=== PATIENT | female | born 1955 | race Caucasian/White ===

== ENCOUNTER 2022-05-27 18:06 | Emergency (ER) | payer OTHER ==
[2022-05-27 18:35] VITALS: BP 151/97; PULSE 83; RESP 16; TEMP 97.9; BMI 30.7
== END 2022-05-27 18:53 | disposition home or self-care (01) ==
LOC: FER 18:06
PROC: 0HQMXZZ Repair Right Foot Skin, External Approach (ICD-10-PCS; principal; 2022-05-27)
DX: S91.114A Laceration without foreign body of right lesser toe(s) without damage to nail, initial encounter (principal); W26.8XXA Contact with other sharp object(s), not elsewhere classified, initial encounter
CPT/HCPCS: 99282-25

== ENCOUNTER 2022-06-09 14:20 | Emergency (ER) | payer OTHER ==
[2022-06-09 14:24] VITALS: BP 138/83; PULSE 83; RESP 16; TEMP 98.3; BMI 30.7
== END 2022-06-09 15:12 | disposition home or self-care (01) ==
LOC: FER 14:20
DX: Z48.02 Encounter for removal of sutures (principal)
CPT/HCPCS: 99281-25

== ENCOUNTER 2024-07-24 16:07 | Inpatient (IN) | payer BC, OTHER ==
[2024-07-24] MEDS ORDERED: LIDOCAINE 5% TOPICAL PATCH ONE (17:08)
[2024-07-24] MEDS: LIDOCAINE 5% TOPICAL PATCH TP ONE (17:10)
[2024-07-24 17:30] LABS: HEMATOCRIT 41.2 % (32.4-45.2); HEMOGLOBIN 14.2 G/dL (10.7-15.3); MCH 32.2 pg (25.7-33.7); MCHC 34.4 g/dl (32.0-36.0); MEAN CELL VOLUME 93.5 fl (80-96); MEAN PLT VOLUME 9.5 fl (7.5-11.1); PLATELET COUNT 154.6 10^3/uL (134-434); RBC 4.41 10^6/uL (3.60-5.2); RDW 13.1 % (11.6-15.6); WHITE BLOOD COUNT 12.9 10^3/uL (4.0-10.8)
[2024-07-24] MEDS ORDERED: KETOROLAC TROMETHAMINE 15 MG/ML VIAL ONE (17:39)
[2024-07-24] MEDS: KETOROLAC TROMETHAMINE 15 MG/ML VIAL IVPUSH ONE (17:45)
[2024-07-24 17:48] LABS: ALBUMIN 4.2 g/dl (3.4-5.0); BILIRUBIN,TOTAL 0.7 mg/dl (0.2-1); CALCIUM 9.6 mg/dl (8.5-10.1); CREATININE 0.7 mg/dl (0.6-1.3); MAGNESIUM 1.9 mg/dL (1.8-2.4); POTASSIUM 4.5 mmol/L (3.5-5.1); TOT PROT 6.5 g/dl (6.4-8.2)
[2024-07-24] MEDS: SODIUM CHLORIDE 1,000 ML IV STA (18:00)
[2024-07-24] MEDS: ACETAMINOPHEN 1000 MG/100 ML BAG IVPB ONE (18:30)
[2024-07-24] MEDS ORDERED: ACETAMINOPHEN INJECTION 100 ML ONE (18:34)
[2024-07-24] MEDS ORDERED: PIPERACILLIN/TAZOBACTAM 3.375 GM VIAL IVPB ONE (18:35)
[2024-07-24] MEDS ORDERED: VANCOMYCIN 1,000 MG VIAL (RESTRICTED TO ID ONLY) ONE (18:35)
[2024-07-24] MEDS: PIPERACILLIN/TAZOB 3.375 GM 3.375 GM in DEXTROSE 5%-WATER - 50 ML IVPB ONE (18:45)
[2024-07-24] MEDS: SODIUM CHLORIDE 1,500 ML IV STA (18:48)
[2024-07-24] MEDS: VANCOMYCIN 1,000 MG in DEXTROSE 5%-WATER - 250 ML IVPB ONE (18:52)
[2024-07-24 19:25] LABS: EPITHELIAL CELLS 0-5 /hpf
[2024-07-24 19:26] LABS: PLATELET ESTIMATE ADEQUATE
[2024-07-24] MEDS ORDERED: DOCUSATE SODIUM 100 MG CAPSULE (FP) PO PRN (21:25)
[2024-07-24] MEDS: DULoxetine HCL 20 MG CAPSULE.DR PO SCH (23:57)
[2024-07-24] MEDS: MONTELUKAST NA 10 MG TABLET PO SCH (23:57)
[2024-07-24] MEDS: ROSUVASTATIN CA 10 MG TABLET PO SCH (23:58)
[2024-07-25] MEDS: FLUTICASONE/SALMETEROL (WIXELA) 100 MCG/50 MCG DISKUS IH SCH (00:14)
[2024-07-25] MEDS: LACTATED RINGERS SOLUTION 1,000 ML/1,000 ML INFUS.BAG IV STA (00:40)
[2024-07-25] MEDS: PIPERACILLIN/TAZOB 3.375 GM 3.375 GM in DEXTROSE 5%-WATER - 50 ML IVPB SCH ×2 (02:47→12:26)
[2024-07-25] MEDS: KETOROLAC TROMETHAMINE 15 MG/ML VIAL IVPUSH PRN (05:12)
[2024-07-25] MEDS: LIDOCAINE PATCH REMOVAL MC SCH (05:13)
[2024-07-25] MEDS: VANCOMYCIN/WATER FOR INJ (PEG) 1,000 MG/200 ML BAG IVPB SCH (08:04)
[2024-07-25 08:49] LABS: HEMATOCRIT 34.2 % (32.4-45.2); HEMOGLOBIN 11.7 G/dL (10.7-15.3); MCH 31.9 pg (25.7-33.7); MCHC 34.1 g/dl (32.0-36.0); MEAN CELL VOLUME 93.5 fl (80-96); MEAN PLT VOLUME 10.5 fl (7.5-11.1); RBC 3.66 10^6/uL (3.60-5.2); WHITE BLOOD COUNT 8.3 10^3/uL (4.0-10.8)
[2024-07-25 08:53] LABS: CALCIUM 8.1 mg/dl (8.5-10.1); CREATININE 0.6 mg/dl (0.6-1.3); POTASSIUM 3.8 mmol/L (3.5-5.1)
[2024-07-25] MEDS ORDERED: HEPARIN NA (PORCINE) 5,000 UNITS/ML 1ML VIAL IVPUSH PRN (09:56)
[2024-07-25] MEDS: HEPARIN NA (PORCINE) 5,000 UNITS/ML 1ML VIAL IVPUSH PRN (10:32)
[2024-07-25] MEDS: PANTOPRAZOLE SODIUM 40 MG VIAL IVPUSH SCH (10:34)
[2024-07-25] MEDS: HEPARIN - 25,000 UNIT in SODIUM CHLORIDE 495 ML IV SCH (10:41)
[2024-07-25 10:46] LABS: INR 1.44 (0.83-1.09); PROTHROMBIN TIME (PATIENT) 16.2 SEC (9.7-13.0)
[2024-07-25 10:48] LABS: ACTIVATED PTT 40.7 SECONDS (25.2-36.5)
[2024-07-25 11:08] LABS: ARTERIAL BLD GAS O2 SATURATION 95.1 % (95-98); ARTERIAL BLOOD GAS BASE EXCESS -5.1 mmol/L (-2-2); ARTERIAL BLOOD GAS PO2 73.8 mmHg (80-100); ARTERIAL BLOOD GAS pH 7.403 (7.350-7.450)
[2024-07-25 11:10] LABS: VENT RATE NPN
[2024-07-25] MEDS: ACETAMINOPHEN 1000 MG/100 ML BAG IVPB PRN (12:05)
[2024-07-25] MEDS ORDERED: ACETAMINOPHEN 1000 MG/100 ML BAG IVPB PRN (12:17)
[2024-07-25] MEDS: VANCOMYCIN 1,000 MG in DEXTROSE 5%-WATER - 250 ML IVPB SCH (12:26)
[2024-07-25] MEDS: SODIUM CHLORIDE 0.9% 250 ML INFUS.BAG IV ONE (14:19)
[2024-07-25] MEDS: SODIUM CHLORIDE 1,000 ML IV SCH (14:19)
[2024-07-25] MEDS: LACTATED RINGERS SOLUTION 1,000 ML/1,000 ML INFUS.BAG IV SCH (16:56)
[2024-07-25] MEDS: PIPERACILLIN/TAZOB 3.375 GM 50 ML IVPB SCH (21:15)
[2024-07-25] MEDS: LIDOCAINE 5% TOPICAL PATCH TP SCH (23:13)
[2024-07-26] MEDS: LIDOCAINE PATCH REMOVAL MC SCH (00:11)
[2024-07-26 07:32] LABS: CHOLESTEROL 128 mg/dL (50-200)
[2024-07-26 07:33] LABS: LDL CHOLESTEROL (ONLY SJRH) 37 mg/dL (5-100)
[2024-07-26 07:35] LABS: HDL CHOLESTEROL 46 mg/dL (40-60)
[2024-07-26] MEDS: ACETAMINOPHEN 1000 MG/100 ML BAG IVPB PRN (13:26)
[2024-07-26] MEDS: FUROSEMIDE 40 MG/4 ML INJECTABLE VIAL IVPUSH ONE ×2 (13:26→14:16)
[2024-07-26] MEDS: VANCOMYCIN/WATER FOR INJ (PEG) 1,000 MG/200 ML BAG IVPB ONE (23:31)
[2024-07-27 08:05] LABS: BASO % 0.2 % (0-2.0); EOS % 0.2 % (0-4.5); HEMATOCRIT 35.5 % (32.4-45.2); HEMOGLOBIN 11.9 GM/dL (10.7-15.3); LYMPH % 10.7 % (8-40); MCH 30.6 pg (25.7-33.7); MCHC 33.6 g/dl (32.0-36.0); MEAN CELL VOLUME 91.2 fl (80-96); MEAN PLT VOLUME 10.5 fl (7.5-11.1); MONO % 5.9 % (3.8-10.2); PLATELET COUNT 91 10^3/uL (134-434); RBC 3.89 M/mm3 (3.60-5.2); RDW 12.9 % (11.6-15.6); WHITE BLOOD COUNT 11.9 K/mm3 (4.0-10.0)
[2024-07-27 08:37] LABS: ALBUMIN 2.6 g/dl (3.4-5.0); ALK PHOS 68 U/L (45-117); ANION GAP 7 mmol/L (4-13); BILIRUBIN,TOTAL 0.5 mg/dL (0.2-1); BLOOD UREA NITROGEN 10.3 mg/dL (7-18); CALCIUM 8.5 mg/dL (8.5-10.1); CHLORIDE 106 mmol/L (98-107); CO2 26 mmol/L (21-32); CREATININE 0.5 mg/dL (0.55-1.3); GLUCOSE,RANDOM 91 mg/dL (74-106); POTASSIUM 2.9 mmol/L (3.5-5.1); SGOT/AST 40 U/L (15-37); SGPT/ALT 63 U/L (13-61); SODIUM 138 mmol/L (136-145); TOT PROT 5.3 g/dl (6.4-8.2)
[2024-07-27] MEDS ORDERED: DOCUSATE SODIUM 100 MG CAPSULE (FP) PO PRN (09:24)
[2024-07-27] MEDS: HEPARIN NA (PORCINE) 5,000 UNITS/ML 1ML VIAL SQ SCH (10:31)
[2024-07-27] MEDS: SODIUM CHLORIDE 1,000 ML IV SCH (12:07)
[2024-07-27] MEDS: KCL 10 MEQ IVPB 10 MEQ/100 ML INFUS.BAG IVPB SCH ×2 (12:32→17:52)
[2024-07-27] MEDS: POTASSIUM CHLORIDE ORAL LIQUID 20 MEQ/15 ML PO ONE (16:03)
[2024-07-27 16:17] VITALS: BMI 30.6
[2024-07-27] MEDS ORDERED: VANCOMYCIN 1,000 MG VIAL (RESTRICTED TO ID ONLY) ONE (16:30)
[2024-07-27] MEDS ORDERED: THROMBIN (BOVINE) 20,000 UNIT VIAL TP ONE (16:30)
[2024-07-27] MEDS ORDERED: BUPIVACAINE HCL/PF 0.5% (5MG/ML) 10 ML VIAL ONE (16:30)
[2024-07-27] MEDS ORDERED: GENTAMICIN SO4 80 MG/2 ML VIAL ONE ×2 (16:30→21:55)
[2024-07-27] MEDS ORDERED: BUPIVACAINE LIPOSOME/PF (EXPAREL) 266 MG/20 ML VIAL ONE (16:31)
[2024-07-27] MEDS ORDERED: LIDOCAINE 1%/EPI 1:100000 (20 ML MULTI DOSE VIAL) ONE (16:31)
[2024-07-27 19:43] LABS: CHLORIDE 105 mmol/L (98-107); SODIUM 138 mmol/L (136-145)
[2024-07-27 19:45] LABS: BLOOD UREA NITROGEN 8.9 mg/dL (7-18); CALCIUM 8.3 mg/dL (8.5-10.1); CO2 25 mmol/L (21-32); GLUCOSE,RANDOM 99 mg/dL (74-106)
[2024-07-27 19:49] LABS: CREATININE 0.4 mg/dL (0.55-1.3)
[2024-07-27 19:58] LABS: ANION GAP 9 mmol/L (4-13); POTASSIUM 2.9 mmol/L (3.5-5.1)
[2024-07-27] MEDS ORDERED: MIDAZOLAM HCL 2 MG/2 ML SINGLE DOSE VIAL ONE (20:50)
[2024-07-27] MEDS: LIDOCAINE 1%/EPI 1:100000 (20 ML MULTI DOSE VIAL) IJ ONE (21:15)
[2024-07-27] MEDS: HYDROGEN PEROXIDE 473 ML PO ONE (21:30)
[2024-07-27] MEDS: GENTAMICIN SO4 80 MG/2 ML VIAL IVPB ONE ×2 (21:30→22:00)
[2024-07-27] MEDS: MONTELUKAST NA 10 MG TABLET PO SCH (22:00)
[2024-07-27] MEDS: VANCOMYCIN 1 GM in D5W (PRE-DOCKED) 1,000 MG/250 ML (RESTRICTED TO ID ONLY IVPB ONE (22:00)
[2024-07-27] MEDS: DULoxetine HCL 20 MG CAPSULE.DR PO SCH (22:00)
[2024-07-27] MEDS: ROSUVASTATIN CA 10 MG TABLET PO SCH (22:00)
[2024-07-27] MEDS: FLUTICASONE/SALMETEROL (WIXELA) 100 MCG/50 MCG DISKUS IH SCH (22:00)
[2024-07-27] MEDS ORDERED: NEOSTIGMINE METHYLSULFATE 0.5 MG/1 ML - 10 ML MDV ONE (22:06)
[2024-07-27] MEDS: BUPIVACAINE LIPOSOME/PF (EXPAREL) 266 MG/20 ML VIAL NR ONE (22:14)
[2024-07-27] MEDS: BUPIVACAINE HCL/PF 0.5% (5 MG/ML) 30 ML VIAL IJ ONE (22:14)
[2024-07-27] MEDS ORDERED: ONDANSETRON 4 MG/2 ML VIAL IVPUSH PRN ×2 (22:52→23:04)
[2024-07-27] MEDS: ACETAMINOPHEN 1000 MG/100 ML BAG IVPB ONE (23:10)
[2024-07-27] MEDS: LACTATED RINGERS SOLUTION 1,000 ML IV SCH (23:35)
[2024-07-28] MEDS: PIPERACILLIN/TAZOB 3.375 GM 50 ML IVPB SCH (02:37)
[2024-07-28] MEDS: ACETAMINOPHEN 1000 MG/100 ML BAG IVPB ONE (04:34)
[2024-07-28] MEDS: LACTATED RINGERS SOLUTION 1,000 ML IV SCH (04:34)
[2024-07-28] MEDS: ACETAMINOPHEN 1000 MG/100 ML BAG IVPB SCH (06:20)
[2024-07-28 07:40] LABS: BASO % 0.1 % (0-2.0); HEMATOCRIT 34.1 % (32.4-45.2); HEMOGLOBIN 11.5 GM/dL (10.7-15.3); LYMPH % 9.3 % (8-40); MCH 30.9 pg (25.7-33.7); MCHC 33.8 g/dl (32.0-36.0); MEAN CELL VOLUME 91.5 fl (80-96); MONO % 3.8 % (3.8-10.2); NEUT % 86.8 % (42.8-82.8); PLATELET COUNT 124 10^3/uL (134-434); RBC 3.73 M/mm3 (3.60-5.2); RDW 13.5 % (11.6-15.6); WHITE BLOOD COUNT 8.4 K/mm3 (4.0-10.0)
[2024-07-28 07:56] LABS: POTASSIUM 3.3 mmol/L (3.5-5.1)
[2024-07-28 08:02] LABS: ALBUMIN 2.4 g/dl (3.4-5.0); BLOOD UREA NITROGEN 7.3 mg/dL (7-18); CALCIUM 8.3 mg/dL (8.5-10.1)
[2024-07-28 08:05] LABS: BILIRUBIN,DIRECT 0.2 mg/dL (0.0-0.2); CREATININE 0.3 mg/dL (0.55-1.3); PHOSPHOROUS 1.9 mg/dL (2.5-4.9)
[2024-07-28 08:06] LABS: BILIRUBIN,TOTAL 0.4 mg/dL (0.2-1); TOT PROT 5.4 g/dl (6.4-8.2)
[2024-07-28 09:43] LABS: HEMATOCRIT 34.2 % (32.4-45.2); HEMOGLOBIN 11.2 GM/dL (10.7-15.3); MCH 30.6 pg (25.7-33.7); MCHC 32.8 g/dl (32.0-36.0); MEAN CELL VOLUME 93.2 fl (80-96); MEAN PLT VOLUME 11.4 fl (7.5-11.1); PLATELET COUNT 112 10^3/uL (134-434); RBC 3.67 M/mm3 (3.60-5.2); RDW 13.3 % (11.6-15.6); WHITE BLOOD COUNT 12.3 K/mm3 (4.0-10.0)
[2024-07-28] MEDS: LIDOCAINE 5% TOPICAL PATCH TP SCH (11:24)
[2024-07-28] MEDS: PANTOPRAZOLE SODIUM 40 MG VIAL IVPUSH SCH (11:26)
[2024-07-28] MEDS: NAPH,MB-DB/K PH,MBDB POWDER PACKET PO SCH (11:26)
[2024-07-28] MEDS: POTASSIUM CHLORIDE ORAL LIQUID 20 MEQ/15 ML PO ONE (11:29)
[2024-07-28] MEDS: MONTELUKAST NA 10 MG TABLET PO SCH (21:35)
[2024-07-28] MEDS: ROSUVASTATIN CA 10 MG TABLET PO SCH (21:35)
[2024-07-28] MEDS: DULoxetine HCL 20 MG CAPSULE.DR PO SCH (21:35)
[2024-07-28] MEDS: LIDOCAINE PATCH REMOVAL MC SCH (21:47)
[2024-07-28] MEDS: FLUTICASONE/SALMETEROL (WIXELA) 100 MCG/50 MCG DISKUS IH SCH (21:48)
[2024-07-29 07:31] LABS: HEMATOCRIT 32.4 % (32.4-45.2); HEMOGLOBIN 10.8 GM/dL (10.7-15.3); MCH 30.5 pg (25.7-33.7); MCHC 33.3 g/dl (32.0-36.0); MEAN CELL VOLUME 91.5 fl (80-96); MEAN PLT VOLUME 9.4 fl (7.5-11.1); PLATELET COUNT 180 10^3/uL (134-434); RBC 3.54 M/mm3 (3.60-5.2); WHITE BLOOD COUNT 11.1 K/mm3 (4.0-10.0)
[2024-07-29 07:44] LABS: HEMATOCRIT 32.1 % (32.4-45.2); MCH 31.2 pg (25.7-33.7); MCHC 34.3 g/dl (32.0-36.0); MEAN PLT VOLUME 9.2 fl (7.5-11.1); PLATELET COUNT 175 10^3/uL (134-434); RBC 3.53 M/mm3 (3.60-5.2); RDW 13.1 % (11.6-15.6); WHITE BLOOD COUNT 10.8 K/mm3 (4.0-10.0)
[2024-07-29 07:45] LABS: POTASSIUM 3.2 mmol/L (3.5-5.1)
[2024-07-29 07:48] LABS: CALCIUM 8.4 mg/dL (8.5-10.1)
[2024-07-29 07:49] LABS: BLOOD UREA NITROGEN 8.8 mg/dL (7-18); MAGNESIUM 1.9 mg/dL (1.8-2.4)
[2024-07-29 07:52] LABS: CREATININE 0.4 mg/dL (0.55-1.3); PHOSPHOROUS 1.9 mg/dL (2.5-4.9)
[2024-07-29] MEDS: POTASSIUM CHLORIDE ORAL LIQUID 20 MEQ/15 ML PO ONE (09:36)
[2024-07-29] MEDS: NAPH,MB-DB/K PH,MBDB POWDER PACKET PO SCH (09:38)
[2024-07-29 11:01] LABS: ANISOCYTOSIS 0; HELMET CELLS 0; HOWELL-JOLLY BODIES 0; MACROCYTOSIS 0; OVALOCYTE 0; ROULEAU 0; SICKELED CELLS 0; TARGET CELLS 0; TEAR DROP CELLS 0; TOXIC GRANULATION 0
[2024-07-29] MEDS: oxyCODONE HCL 5 MG TABLET PO PRN (23:34)
[2024-07-30 08:43] LABS: HEMATOCRIT 31.2 % (32.4-45.2); HEMOGLOBIN 10.4 GM/dL (10.7-15.3); MCH 30.5 pg (25.7-33.7); MCHC 33.2 g/dl (32.0-36.0); MEAN CELL VOLUME 91.8 fl (80-96); MEAN PLT VOLUME 8.8 fl (7.5-11.1); PLATELET COUNT 251 10^3/uL (134-434); RDW 13.1 % (11.6-15.6); WHITE BLOOD COUNT 11.2 K/mm3 (4.0-10.0)
[2024-07-30 08:45] LABS: POTASSIUM 3.4 mmol/L (3.5-5.1)
[2024-07-30 08:50] LABS: CALCIUM 8.8 mg/dL (8.5-10.1)
[2024-07-30 08:51] LABS: BLOOD UREA NITROGEN 5.9 mg/dL (7-18); MAGNESIUM 1.9 mg/dL (1.8-2.4)
[2024-07-30 08:54] LABS: PHOSPHOROUS 3.7 mg/dL (2.5-4.9)
[2024-07-30 08:56] LABS: CREATININE 0.3 mg/dL (0.55-1.3)
[2024-07-30] MEDS: PANTOPRAZOLE 40 MG TABLET PO SCH (10:07)
[2024-07-30] MEDS: DOCUSATE SODIUM 100 MG CAPSULE (FP) PO PRN (12:14)
[2024-07-30] MEDS: POTASSIUM CHLORIDE ORAL LIQUID 20 MEQ/15 ML PO ONE (14:48)
[2024-07-30] MEDS: CEFTRIAXONE 2 GM-D5W BAG 2 GM/50 ML BAG IVPB SCH (14:48)
[2024-07-30] MEDS: POTASSIUM CHLORIDE TABS 20 MEQ TABLET.ER (FP) PO ONE (19:02)
[2024-07-31 07:33] LABS: HEMOGLOBIN 10.7 GM/dL (10.7-15.3); MCH 31.3 pg (25.7-33.7); MCHC 34.5 g/dl (32.0-36.0); MEAN CELL VOLUME 90.6 fl (80-96); MEAN PLT VOLUME 8.4 fl (7.5-11.1); PLATELET COUNT 340 10^3/uL (134-434); RBC 3.42 M/mm3 (3.60-5.2); RDW 13.4 % (11.6-15.6); WHITE BLOOD COUNT 11.4 K/mm3 (4.0-10.0)
[2024-07-31 07:49] LABS: POTASSIUM 4.2 mmol/L (3.5-5.1)
[2024-07-31 07:56] LABS: ALBUMIN 2.6 g/dl (3.4-5.0); BLOOD UREA NITROGEN 6.9 mg/dL (7-18)
[2024-07-31 07:58] LABS: CREATININE 0.3 mg/dL (0.55-1.3)
[2024-07-31 08:00] LABS: BILIRUBIN,TOTAL 0.4 mg/dL (0.2-1); TOT PROT 5.7 g/dl (6.4-8.2)
[2024-07-31 08:57] LABS: ANISOCYTOSIS 1+; MACROCYTOSIS 1+
[2024-07-31] MEDS: HYDROmorphone HCl 2 MG/ML VIAL IVPB PRN (12:23)
[2024-07-31] MEDS: GABAPENTIN 100 MG CAPSULE PO SCH (14:05)
[2024-07-31] MEDS: HYDROmorphone HCL CARPU-JECT 2 MG/1 ML DISP.SYRIN IVPB PRN (22:21)
[2024-08-01 08:14] LABS: HEMATOCRIT 33.6 % (32.4-45.2); HEMOGLOBIN 11.3 GM/dL (10.7-15.3); MCH 30.8 pg (25.7-33.7); MCHC 33.6 g/dl (32.0-36.0); MEAN CELL VOLUME 91.7 fl (80-96); MEAN PLT VOLUME 7.9 fl (7.5-11.1); PLATELET COUNT 456 10^3/uL (134-434); RBC 3.66 M/mm3 (3.60-5.2); RDW 13.5 % (11.6-15.6); WHITE BLOOD COUNT 10.9 K/mm3 (4.0-10.0)
[2024-08-01 08:33] LABS: POTASSIUM 4.4 mmol/L (3.5-5.1)
[2024-08-01 08:37] LABS: BLOOD UREA NITROGEN 11.2 mg/dL (7-18); CALCIUM 9.2 mg/dL (8.5-10.1)
[2024-08-01 08:38] LABS: ALBUMIN 2.8 g/dl (3.4-5.0)
[2024-08-01 08:40] LABS: CREATININE 0.4 mg/dL (0.55-1.3)
[2024-08-01 08:42] LABS: BILIRUBIN,TOTAL 0.4 mg/dL (0.2-1); TOT PROT 6.1 g/dl (6.4-8.2)
[2024-08-01] MEDS: ENOXAPARIN NA (PORCINE) 40 MG/0.4 ML DISP.SYRIN SQ SCH (14:07)
[2024-08-02] MEDS ORDERED: KETOROLAC TROMETHAMINE 10 MG TABLET PO PRN (11:19)
[2024-08-02 13:33] LABS: BASO % 0.5 % (0-2.0); EOS % 2.6 % (0-4.5); HEMATOCRIT 33.2 % (32.4-45.2); HEMOGLOBIN 10.9 GM/dL (10.7-15.3); LYMPH % 16.7 % (8-40); MCH 30.5 pg (25.7-33.7); MCHC 32.9 g/dl (32.0-36.0); MEAN CELL VOLUME 92.8 fl (80-96); MEAN PLT VOLUME 7.7 fl (7.5-11.1); MONO % 8.1 % (3.8-10.2); NEUT % 72.1 % (42.8-82.8); PLATELET COUNT 583 10^3/uL (134-434); RBC 3.58 M/mm3 (3.60-5.2); RDW 13.5 % (11.6-15.6); WHITE BLOOD COUNT 11.7 K/mm3 (4.0-10.0)
[2024-08-02] MEDS: SENNOSIDES 8.8 MG/5 ML SYRUP PO SCH (15:05)
[2024-08-02] MEDS: DOCUSATE SODIUM 100 MG CAPSULE (FP) PO SCH (15:05)
[2024-08-02] MEDS: traMADol HCL 50 MG TABLET PO PRN (19:53)
[2024-08-02] MEDS: CYCLOBENZAPRINE HCL 5 MG TABLET PO PRN (21:31)
[2024-08-03 08:37] LABS: POTASSIUM 4.4 mmol/L (3.5-5.1)
[2024-08-03 08:47] LABS: BASO % 0.4 % (0-2.0); EOS % 2.3 % (0-4.5); HEMATOCRIT 32.4 % (32.4-45.2); HEMOGLOBIN 10.9 GM/dL (10.7-15.3); LYMPH % 15.1 % (8-40); MCH 30.9 pg (25.7-33.7); MCHC 33.8 g/dl (32.0-36.0); MEAN CELL VOLUME 91.4 fl (80-96); MEAN PLT VOLUME 7.5 fl (7.5-11.1); MONO % 8.4 % (3.8-10.2); NEUT % 73.8 % (42.8-82.8); PLATELET COUNT 602 10^3/uL (134-434); RBC 3.54 M/mm3 (3.60-5.2); RDW 13.2 % (11.6-15.6); WHITE BLOOD COUNT 11.5 K/mm3 (4.0-10.0)
[2024-08-03 08:48] LABS: ALBUMIN 2.9 g/dl (3.4-5.0); CALCIUM 9.5 mg/dL (8.5-10.1)
[2024-08-03 08:49] LABS: BLOOD UREA NITROGEN 11.5 mg/dL (7-18)
[2024-08-03 08:52] LABS: CREATININE 0.4 mg/dL (0.55-1.3)
[2024-08-03 08:53] LABS: BILIRUBIN,TOTAL 0.6 mg/dL (0.2-1); TOT PROT 6.5 g/dl (6.4-8.2)
[2024-08-03 11:35] VITALS: RESP 18
[2024-08-03] MEDS: GABAPENTIN 300 MG CAPSULE PO SCH (21:17)
[2024-08-04] MEDS: GABAPENTIN 100 MG CAPSULE PO SCH (06:10)
[2024-08-04 07:41] LABS: BASO % 0.6 % (0-2.0); EOS % 2.9 % (0-4.5); HEMATOCRIT 33.3 % (32.4-45.2); HEMOGLOBIN 11.2 GM/dL (10.7-15.3); MCH 31.1 pg (25.7-33.7); MCHC 33.6 g/dl (32.0-36.0); MEAN CELL VOLUME 92.5 fl (80-96); MEAN PLT VOLUME 7.5 fl (7.5-11.1); MONO % 9.1 % (3.8-10.2); NEUT % 69.4 % (42.8-82.8); PLATELET COUNT 677 10^3/uL (134-434); RDW 13.2 % (11.6-15.6); WHITE BLOOD COUNT 9.7 K/mm3 (4.0-10.0)
[2024-08-04 08:02] LABS: POTASSIUM 4.2 mmol/L (3.5-5.1)
[2024-08-04 08:07] LABS: CALCIUM 9.4 mg/dL (8.5-10.1)
[2024-08-04 08:08] LABS: ALBUMIN 2.9 g/dl (3.4-5.0); BLOOD UREA NITROGEN 13.5 mg/dL (7-18)
[2024-08-04 08:10] LABS: BILIRUBIN,TOTAL 0.4 mg/dL (0.2-1); TOT PROT 6.4 g/dl (6.4-8.2)
[2024-08-04 08:12] LABS: CREATININE 0.4 mg/dL (0.55-1.3)
[2024-08-04 18:08] VITALS: BP 110/79; PULSE 85; TEMP 98.1
== END 2024-08-04 19:54 | disposition home health service (06) | DRG 853 ==
LOC: FER 16:07 → FM/S 17:52 → J4S 07-25 11:46 → OBSVTOIN 07-26 10:42 → J4W 08-02 13:08
PROVIDERS: ADMIT Student in an Organized Health Care Education/Training Program; ATTEND Registered Nurse
PROC: 0JB70ZZ Excision of Back Subcutaneous Tissue and Fascia, Open Approach (ICD-10-PCS; 2024-07-27)
PROC: 4A1004G Monitoring of Central Nervous Electrical Activity, Intraoperative, Open Approach (ICD-10-PCS; 2024-07-27)
PROC: 009U3ZZ Drainage of Spinal Canal, Percutaneous Approach (ICD-10-PCS; 2024-07-27)
PROC: 0SG1071 Fusion of 2 or more Lumbar Vertebral Joints with Autologous Tissue Substitute, Posterior Approach, Posterior Column, Open Approach (ICD-10-PCS; principal; 2024-07-27 22:00)
PROC: 05HY33Z Insertion of Infusion Device into Upper Vein, Percutaneous Approach (ICD-10-PCS; 2024-07-31)
DX: A41.9 Sepsis, unspecified organism (principal); G06.1 Intraspinal abscess and granuloma; J81.0 Acute pulmonary edema; J98.11 Atelectasis; M51.360 Other intervertebral disc degeneration, lumbar region with discogenic back pain only; J45.909 Unspecified asthma, uncomplicated; E78.5 Hyperlipidemia, unspecified; I95.9 Hypotension, unspecified; I10 Essential (primary) hypertension; K59.00 Constipation, unspecified; E66.9 Obesity, unspecified; Z68.29 Body mass index [BMI] 29.0-29.9, adult; M54.9 Dorsalgia, unspecified; E87.6 Hypokalemia
CPT/HCPCS: 0241U-QW; 36415; 36569; 36600; 71045-TC-FY; 71275-TC; 72158-TC; 73560-TC-LT-FY; 74177-TC; 76000-TC-FY; 80048; 80053; 80061; 80076; 81003; 81015; 82272; 82550; 82553; 82803; 83036; 83605; 83735; 83880; 84100; 84439; 84443; 84484; 85025; 85027; 85379; 85610; 85651; 85730; 86038; 86140; 86431; 86618; 86850; 86900; 86901; 87040; 87070; 87075; 87086; 87184; 87205; 87491; 87591; 87661; 87899; 88304-TC; 88305-TC; 88311-TC; 93005; 93306-TC; 93970-TC; 94760; 97116-GP; 97161-GP; 99291; C1713; G0378; J0131; J1644; Q9967